=== PATIENT | female | born 2000 | race Caucasian/White ===

== ENCOUNTER 2022-01-08 06:52 | Day surgery (SDC) | payer BC ==
[2022-01-08] MEDS ORDERED: Lactated Ringers 1,000 ML IV ONE ×2 (07:20→11:51)
[2022-01-08] MEDS ORDERED: Lactated Ringers 1,000 ML IV SCH (07:30)
[2022-01-08] MEDS ORDERED: KEFZOL 1 GM/50 ML PREMIX** 1 GM/50 ML IVPB IV SCH (07:30)
[2022-01-08] MEDS ORDERED: Transderm Scop 1.5MG Patch ONE (08:37)
[2022-01-08] MEDS ORDERED: Transderm Scop 1.5MG Patch TOP PRN (08:39)
[2022-01-08] MEDS ORDERED: Sensorcaine 0.25% 10 ML ONE (10:03)
[2022-01-08] MEDS ORDERED: DIPRIVAN 200 MG/20 ML IV ONE (10:28)
[2022-01-08] MEDS ORDERED: Zemuron 100 MG/10 ML ONE (10:28)
[2022-01-08] MEDS ORDERED: Versed 2 MG/2 ML Injection ONE (10:28)
[2022-01-08] MEDS ORDERED: SUBLIMAZE 100 MCG/2 ML ONE ×2 (10:28→10:57)
[2022-01-08] MEDS ORDERED: Xylocaine-Mpf 2% 5 Ml Vial ONE (10:41)
[2022-01-08] MEDS ORDERED: TORAdol 30 mg Injection ONE (11:15)
[2022-01-08] MEDS ORDERED: Zofran 4 MG/2 ML VIAL ONE (11:15)
[2022-01-08] MEDS ORDERED: BRIDION 200MG/2ML IV ONE (11:16)
[2022-01-08] MEDS ORDERED: DEMEROL 50 MG ONE (11:40)
[2022-01-08 12:42] VITALS: BP 121/81; PULSE 94; O2SAT 100
[2022-01-08 21:27] LABS: Appearance CLEAR (CLEAR); Bilirubin NEGATIVE (NEGATIVE); Dipstick done @ ? MAIN LAB; Glucose NEGATIVE (NEGATIVE); Ketones NEGATIVE (NEGATIVE); Nitrite NEGATIVE (NEGATIVE); Ph 6.5 (5-6); Protein,Urine Dip NEGATIVE (Negative); RBC NEGATIVE Ery/ul (0-5); Specific Gravity 1.015 (1.005-1.025); Urobilinogen 0.2 mg/dL (0-1)
[2022-01-08 21:44] LABS: RBC 0-2 /HPF (0-2); WBC 0-2 /HPF (0-5)
--- NOTE | 2022-01-09 11:46 | OP ---
SURGERY DATE/TIME: 01/08/2022 1037 PREOPERATIVE DIAGNOSIS: Chronic pelvic pain. POSTOPERATIVE DIAGNOSIS: Chronic pelvic pain with left-side abdominal wall adhesions. PROCEDURE: Diagnostic laparoscopy and lysis of abdominal adhesions on left abdominal side wall. SURGEON: Matthew Pacheco D.O. INSPECTOR HAIRSPRING: Idania Luna surgical instrument technician. ANESTHESIA: General. ESTIMATED BLOOD LOSS: Minimal. COMPLICATIONS: None. INDICATIONS: The risks, benefits, indications and alternatives of the procedure were reviewed with the patient prior to procedure. The patient understood the risk of infection, bleeding, bowel injury, bladder injury, pelvic infection and thromboembolic disorder associated with this surgery however desires to have this surgery as a possible means to alleviate her current medical condition. DESCRIPTION OF PROCEDURE AND FINDINGS: At this point the patient is taken to the operating room where she was given general anesthesia and was found to be adequate. She was then prepped and draped in the supine position. At this point, a 5 mm incision was made in the umbilical fold where a 5 mm trocar and sleeve were advanced under direct visualization where pneumoperitoneum was obtained with 4 liters of CO2 gas. An additional incision in the left lower quadrant region where a 5 mm skin incision was made and 5 mm trocar and sleeve were advanced under direct visualization. A survey of the patient's pelvis appeared to be within normal limits. No endometriotic implants were noted in the posterior cul-de-sac or anterior cul-de-sac. The bilateral ovaries appeared to be within normal limits. No endometriosis was noted off of either adnexal side. There did appear her to have left colon adhesed to the left abdominal side wall for which the LigaSure was used to lyse adhesions, the left colon that was densely attached to the left side wall releasing the colon from the left side wall and hemostasis was obtained. From this point irrigation was taken place and there was no bleeding that was noted. The remaining abdominal pelvic region appears to be within normal limits. At this time all instruments were removed from the patient's abdominal region and incisions were closed with 4-0 Monocryl suture. The patient was then taken out of anesthesia and was then taken to the recovery room in stable condition. All instruments and laps were accounted for x2.
== END 2022-01-08 12:54 | disposition home or self-care (01) ==
LOC: SDC 06:52
PROVIDERS: ATTEND Obstetrics & Gynecology
DX: K66.0 Peritoneal adhesions (postprocedural) (postinfection) (principal); R10.2 Pelvic and perineal pain
CPT/HCPCS: 81001; 81025; 87086; J0690; J1885; J2175; J2250; J2405; J2704; J3010; A9270-GY

== ENCOUNTER 2024-01-07 08:40 | Emergency (ER) | payer BC ==
[2024-01-07 09:05] VITALS: TEMP 97.6
[2024-01-07 09:34] VITALS: RESP 16
[2024-01-07] MEDS ORDERED: PERCOCET TABLET 5/325MG ONE (09:49)
--- NOTE | 2024-01-07 09:49 | ERPHSYRPT ---
- History of Present Illness Time Seen by Provider: 01/07/24 08:55 Source: patient, family Exam Limitations: no limitations Patient Subjective Stated Complaint: pt here for a fall today, she states she slipped on wet steps and fell down 3 steps, landing on back, she co pain mid back, and right buttock Triage Nursing Assessment: pt alert, appears in pain grimacing, resp easy, skin w/d/p, back tender fourdrinier to palpate, no bruising noted, moves all ext well, no edema noted Physician History: 23 years old female presented in the ER after she slipped on her wet steps, fell backward and hit her upper back against couple of steps. Did not hit her head. This happened prior to arrival. Complaining of pain in the upper mid back with some radiation to the anterior chest wall. Has some discomfort in the right hip area as well. No difficulty movements and able to walk without any limitations. Allergies/Adverse Reactions: Sulfa (Sulfonamide Antibiotics) Allergy (Verified 01/07/24 09:06) Rash Home Medications: Non-Formulary Drug [Non-Formulary Bulk Item] 1 tab PO UD 12/18/21 [History] Hx Tetanus, Diphtheria Vaccination/Date Given: No Hx Influenza Vaccination/Date Given: No Hx Pneumococcal Vaccination/Date Given: No Immunizations Up to Date: Yes Travel Risk - International Travel Have you traveled outside of the country in past 3 weeks: No - Emerging Infectious Disease Are you exhibiting symptoms associated with any current EIDs: No - Review of Systems Constitutional: No Symptoms Ears, Nose, & Throat: No Symptoms Respiratory: No Symptoms Cardiac: Chest Pain Abdominal/Gastrointestinal: No Symptoms Genitourinary Symptoms: No Symptoms Musculoskeletal: Back Pain, Fall Skin: No Symptoms Neurological: No Symptoms Psychological: Anxiety Endocrine: No Symptoms Hematologic/Lymphatic: No Symptoms - Past Medical History Pertinent Past Medical History: Yes Neurological History: No Pertinent History Cardiac History: No Pertinent History Respiratory History: No Pertinent History Endocrine Medical History: No Pertinent History Musculoskeletal History: No Pertinent History GI Medical History: No Pertinent History History: No Pertinent History Psycho-Social History: No Pertinent History Female Reproductive Disorders: No Pertinent History - Past Surgical History Past Surgical History: Yes Neuro Surgical History: No Pertinent History Cardiac: No Pertinent History Respiratory: No Pertinent History Gastrointestinal: No Pertinent History Genitourinary: No Pertinent History Musculoskeletal: Orthopedic Surgery Other Surgical History: HIP SURGERY X2 RIGHT SIDE - Female History Hx Last Menstrual Period: nov Hx Now: (unkn) - Social History Smoking Status: Never smoker Exposure to second hand smoke: No Drug Use: none Patient Lives Alone: No - Social Determinants of Health Will the patient participate in the screening: Declined to provide - Nursing Vital Signs Nursing Vital Signs: Initial Vital Signs Blood Pressure 127/68 01/07/24 09:01 O2 Sat by Pulse Oximetry 96 01/07/24 09:01 Pain Scale Pain Intensity 8 - Beeson Coma Score Best Eye Response (B[place]on): (4) open spontaneously Best Verbal Response (Tucker): (5) oriented Best Motor Response (Tucker): (6) obeys commands Tucker Total: 15 - Physical Exam General Appearance: no apparent distress, alert Head Injury: no evidence of injury Eye Exam: PERRL/EOMI, eyes nml inspection, No scleral icterus ENT Exam: airway nml, No evidence of ENT injury, No dental injury Neck Exam: supple, trachea midline, full range of motion, normal alignment, normal inspection, No muscle spasm Respiratory/Chest Exam: chest tenderness (Right mid thoracic spine area and across the chest wall with no crepitus or flail segment.), normal breath sounds, No respiratory distress Cardiovascular Exam: normal heart sounds, regular rate/rhythm Gastrointestinal Exam: soft, normal bowel sounds, No tenderness Back Exam: normal inspection, vertebral tenderness (Mild mid thoracic tenderness), decreased range of motion, muscle spasm Extremity Exam: normal inspection, normal range of motion Neurologic Exam: alert, oriented x 3, cooperative, decorative cutting machine tender II-XII nml as tested, normal mood/affect, nml cerebellar function, nml station & gait, sensation nml, No motor deficits Skin Exam: normal color SpO2 Interpretation: normal SpO2: 97 O2 Delivery: Room Air Ordered Tests: Active Orders 24 hr Category Date Time Status CHEST 1 VIEW (PORTABLE) Stat Exams 01/07/24 09:41 Completed THORACIC SPINE (AP,LAT,SWIMM) Stat Exams 01/07/24 09:41 Completed HCG QUALITATIVE, URINE Stat Lab 01/07/24 Ordered Medication Summary Discontinued Medications Generic Name Dose Route Start Last Admin Trade Name Freq PRN Reason Stop Dose Admin Oxycodone/Acetaminophen 1 tab 01/07/24 09:41 01/07/24 09:50 Oxycodone Hcl/Apap 5 Mg/325 Mg Tablet PO 01/07/24 09:42 1 tab STAT ONE Administration Oxycodone/Acetaminophen Confirm 01/07/24 09:49 Oxycodone Hcl/Apap 5 Mg/325 Mg Tablet Administered 01/07/24 09:50 Dose 1 tab .ROUTE .STK-MED ONE - Progress Progress: improved Progress Note: 01/07/24 10:53 23 years old is evaluated in the ER after she slipped and fell back on the steps hitting her upper mid back in. Lungs clear to auscultation, no crepitus. No step-off deformity. X-rays thoracic spines are negative for any acute fracture subluxation, negative x-ray chest. She is given symptomatic treatment for pain, on reevaluation she is feeling better. I believe she has a contusion, recommended ice, NSAIDs and Tylenol for symptomatic relief and outpatient follow-up. Discussed signs symptoms of worsening needing return to ER which she seems understanding. Stable for discharge. Counseled pt/family regarding: diagnosis, need for follow-up, rad results Medical Desision Making - Independent Historian Additional History obtained from: Mother - Diagnostic Testing Diagnostic test were ordered, analyzed, and reviewed by me: Yes Radiological Interpretation: Reviewed by me - Risk of complications The pt has a mod risk of morbidity or mortality based on: Need for prescription drug management - Departure Departure Disposition: Home Clinical Impression: Contusion, back Condition: Stable Critical Care Time: No Referrals: DEANNA SALES NP [Primary Care Provider] - Follow up with PCP 1 day Instructions: Contusion (DC), Preventing falls in adults Additional Instructions: Normal/ibuprofen as needed. Intermittent ice application. Follow-up with primary care for reevaluation. Return to ER for intractable pain, difficulty breathing etc. Prescriptions: Ibuprofen 600 mg PO Q6HPRN PRN 10 Days #20 tablet PRN Reason: Pain
[2024-01-07] MEDS: PERCOCET TABLET 5/325MG PO ONE (09:50)
[2024-01-07 10:15] VITALS: BP 112/69; PULSE 78
--- NOTE | 2024-01-07 10:24 | XRAY ---
Indication: Pain following fall. Comparison: None Portable chest demonstrates normal heart and lungs. Bony thorax intact with incidental minimal dextroscoliosis centered at T5.
--- NOTE | 2024-01-07 10:26 | XRAY ---
Indication: Pain following fall. Comparison: None AP/lateral thoracic spine intact with incidental minimal dextroscoliosis centered at T5. No other bony, articular, or soft tissue abnormalities.
[2024-01-07 10:55] VITALS: O2SAT 97
== END 2024-01-07 11:00 | disposition home or self-care (01) ==
LOC: ED 08:40
DX: S20.224A Contusion of middle back wall of thorax, initial encounter (principal); W01.0XXA Fall on same level from slipping, tripping and stumbling without subsequent striking against object, initial encounter
CPT/HCPCS: 71045; 72072; 99283; A9270-GY